=== PATIENT | female | born 1990 | race Hispanic/Latino ===

== ENCOUNTER 2017-05-14 01:35 | Emergency (ER) | payer SELFPAY ==
--- NOTE | 2017-05-14 02:14 | ED PDOC ---
HPI: Psych/Substance Abuse Time Seen by Provider: 05/14/17 01:39 Chief Complaint (Nursing): Alcohol Ingestion Chief Complaint (Provider): Alcohol Ingestion History Per: Patient History/Exam Limitations: no limitations Onset/Duration Of Symptoms: Hrs Current Symptoms Are (Timing): Still Present Modifying Factor(s): Alcohol Associated Symptoms: denies: Anger, Anxiety Additional Complaint(s): 27 y/o female patient presenting to the Ed with Alcohol Intoxication. PT was brought in by EMS after found publicly intoxicated. PT states she was having drinks at a local bar with coworkers and then was later found in public. PT denies any complaints and has no past medical history. Past Medical History Reviewed: Historical Data, Nursing Documentation, Vital Signs Vital Signs: Last Vital Signs Temp 99 F 05/14/17 01:37 Pulse 74 05/14/17 01:37 Resp 16 05/14/17 01:37 BP 120/86 05/14/17 01:37 Pulse Ox 98 05/14/17 01:37 - Medical History PMH: No Chronic Diseases - Surgical History Surgical History: No Surg Hx - Family History Family History: States: Unknown Family Hx - Social History Current smoker - smoking cessation education provided: No Alcohol: Social Drugs: Denies - Allergies Allergies/Adverse Reactions: Allergies Allergy/AdvReac Type Severity Reaction Status Date / Time Penicillins Allergy RASH Verified 05/14/17 01:37 Review of Systems ROS Statement: Except As Marked, All Systems Reviewed And Found Negative Cardiovascular: Negative for: Chest Pain Gastrointestinal: Positive for: Vomiting ((+)Vomited once). Negative for: Nausea, Diarrhea Neurological: Negative for: Change in Speech Physical Exam - Reviewed Nursing Documentation Reviewed: Yes Vital Signs Reviewed: Yes - Physical Exam Appears: Positive for: Non-toxic, No Acute Distress Head Exam: Positive for: ATRAUMATIC, NORMAL INSPECTION, NORMOCEPHALIC Skin: Positive for: Normal Color, Warm, Dry Eye Exam: Positive for: Normal appearance, EOMI, PERRL Neck: Positive for: Normal, Painless ROM, Supple Cardiovascular/Chest: Positive for: Regular Rate, Rhythm. Negative for: Murmur Respiratory: Positive for: Normal Breath Sounds. Negative for: Respiratory Distress Gastrointestinal/Abdominal: Positive for: Normal Exam, Soft. Negative for: Tenderness Extremity: Positive for: Normal ROM Neurologic/Psych: Positive for: Oriented, Other ((-)Slurred Speech). Negative for: Motor/Sensory Deficits - ECG O2 Sat by Pulse Oximetry: 98 (RA) Pulse Ox Interpretation: Normal - Progress Re-evaluation Time: 05:50 Condition: Re-examined, Improved Medical Decision Making Medical Decision Making: Time: 138 Initial impression: Alcohol Intoxication Initial plan: --ED Observation for Alcohol Intoxication pending Clinical Sobriety Scribe Attestation: Documented by Bhargavi Huggins, acting as a scribe for Heavenly Lyons MD. Scribe Attestation: All medical record entries made by the Scribe were at my direction and personally dictated by me. I have reviewed the chart and agree that the record accurately reflects my personal performance of the history, physical exam, medical decision making, and the department course for this patient. I have also personally directed, reviewed, and agree with the discharge instructions and disposition. ED OBSERVATION Date of observation admission: 05/14/17 Time of observation admission: 02:10 - Observation admission statement Patient is being placed in observation because:: Alcohol Intoxication - Goals of Observation Goals of observation are:: Pending Clinical Sobriety - Progress Note Progress Note: 05/14/17 03:40 PENDING CLINICAL SOBRIETY 05/14/17 05:10 PENDING CLINICAL SOBRIETY 05/14/17 06:02 Pt is alert and awake. Ambulatory with steady gait. Disposition - Clinical Impression Clinical Impression: Alcohol abuse - Patient ED Disposition Is Patient to be Admitted: No Doctor Will See Patient In The: Office Counseled Patient/Family Regarding: Studies Performed, Diagnosis, Need For Followup - Disposition Referrals: [facility] [Outside] Disposition: Routine/Home Disposition Time: 06:00 Condition: GOOD Additional Instructions: Follow up with your PCP in 2-3 days. Instructions: Alcohol Intoxication (ED)
[2017-05-14 06:12] VITALS: BP 127/70; PULSE 63; RESP 15; TEMP 98.6; O2SAT 99
== END 2017-05-14 06:12 | disposition home or self-care (01) ==
LOC: H.ER 01:35
DX: F10.129 Alcohol abuse with intoxication, unspecified (principal); Z88.0 Allergy status to penicillin
CPT/HCPCS: 82948; 99282; G0480